=== PATIENT | female | born 1995 | race Caucasian/White ===

== ENCOUNTER → 2020-01-03 11:27 | Outpatient (CLI) | payer OTHER, MEDICAID, SELFPAY ==
[2020-01-03 12:53] LABS: Add Manual Diff / Slide Review NO; Basophils Absolute Auto 0 /uL (0-100); Basophils Percent Auto 0.3 % (0-2); Eosinophils Absolute Auto 0 /uL (0-450); Eosinophils Percent Auto 0.5 % (2-4); Hematocrit 37.7 % (36-46); Hemoglobin 13.2 g/dL (12.0-16.0); Lymphocytes Absolute Auto 1600 /uL (1100-4500); Lymphocytes Percent Auto 20.7 % (25-40); Mean Corpuscular Hemoglobin 32.3 PG (26-34); Mean Corpuscular Volume 92.2 fL (80-100); Monocytes Absolute Auto 400 /uL (0-900); Monocytes Percent Auto 5.2 % (3-14); Neutrophils Absolute Auto 5600 /uL (1500-7000); Neutrophils Percent Auto 73.3 % (50-75); Platelet Count 180 X10^3/uL (150-400); Red Blood Cell Count 4.09 X10^6/uL (4.0-5.2); Red Cell Distribution Width 12.3 % (11.6-14.8); White Blood Cell Count 7.7 X10^3/uL (4.5-11.0)
[2020-01-03 13:10] LABS: Urine N gonorrhoeae NOT DETECTED
[2020-01-03 13:27] LABS: Urine Chlamydia NOT DETECTED
[2020-01-03 14:36] LABS: Hepatitis B Surface Antigen NEGATIVE s/c (NEGATIVE); Rubella Antibody IgG 34.6 IU/mL (>15)
[2020-01-03 14:55] LABS: HIV 1 & 2 Ab/Ag 4th Gen Combo NEGATIVE (NEGATIVE); Hep C Virus Ab w/Reflex Quant NEGATIVE s/c (NEGATIVE)
[2020-01-03 15:26] LABS: Appearance Urine UA SL CLOUDY; Bilirubin Urine UA NEGATIVE (NEGATIVE); Color Urine UA YELLOW; Glucose Urine UA NEGATIVE (Negative); Ketones Urine UA NEGATIVE (NEGATIVE); Leukocyte Esterase Urine UA NEGATIVE (NEGATIVE); Nitrite Urine UA NEGATIVE (Negative); Occult Blood Urine UA NEGATIVE (Negative); Protein Urine UA NEGATIVE (Negative); Urobilinogen Urine UA 0.2 E.U./dL (0.2)
[2020-01-04 02:32] LABS: RPR Screen Non Reactive (Non Reactive)
[2020-01-04 12:36] LABS: Varicella IgG Antibody <135 index (Immune >165)
== END ==
PROVIDERS: Referring Provider Specialist; Visit Provider Specialist
DX: Z34.01 Encounter for supervision of normal first pregnancy, first trimester (principal)
CPT/HCPCS: 36415; 80055; 81003; 86787; 86803; 86850; 86900; 86901; 87389; 87491; 87591

== ENCOUNTER → 2020-02-14 10:40 | Outpatient (CLI) | payer OTHER, MEDICAID, SELFPAY ==
[2020-02-17 01:44] LABS: Calc Gestational Age Ultrasound (.); Estriol, Free 1.36 ng/mL (.); Inhibin A, Dimeric 73.59 pg/mL (.); Inhibin A, MoM 0.43 (.); Maternal Ethnicity Caucasian (.); Maternal Weight 144 lbs (.); Number of Fetuses No (.); OSBR Risk 1 IN 3501 (.); Results Report (.); Test Results *Screen Negative* (.); hCG, MoM 1.08 (.); hCG, Serum 33796 mIU/mL (.)
== END ==
PROVIDERS: Referring Provider Specialist; Visit Provider Specialist
DX: Z34.02 Encounter for supervision of normal first pregnancy, second trimester (principal); Z3A.17 17 weeks gestation of pregnancy
CPT/HCPCS: 36415; 82105; 82677; 84702; 86336

== ENCOUNTER → 2020-03-29 10:10 | Outpatient (CLI) | payer OTHER, MEDICAID, SELFPAY ==
--- NOTE | 2020-03-29 10:11 | DI.US.S_ITS ---
PROCEDURE: US OB FOLLOW UP INDICATIONS: F/U CARDIAC STRUCTURES NOT WELL SEEN ON ANATOMY US OUTSIDE/PRIOR DATING DATA: Last menstrual period (LMP): 10/13/19. LMP-based estimated date of delivery (AUBREY): 07/19/20. First dating scan (date and location): 01/03/20. Estimated date of delivery (AUBREY) from first dating scan: 07/15/20. TECHNIQUE: Real-time scanning was performed of the fetus, with image documentation and biometric measurements. Endovaginal scanning: Not performed COMPARISON: [facility], , US OB >= 14 WEEKS FETUS, 02/14/2020, 10:25. [facility], , US OB <= 14 WEEKS FETUS, 01/03/2020, 10:42. FINDINGS: General: A single living intrauterine gestation is present. Placenta: Placental position is anterior, without previa. Amniotic fluid index: 11.9 cm, normal range is 5-24 cm. heart rate: 152 beats per minute. Maternal cervical canal: 3.8 cm long. Normal lower limit is 2.5 cm. Other: Normal appearance of 4 chambered heart. However the ventricular outflow tracts are not well seen due to gestational lie. Normal appearance of the chest and diaphragm. IMPRESSION: Single living intrauterine fetus Normal appearance of 4 chambered heart however ventricular outflow tracts are not well sonographically visualized due to lie. Dictated by: Boston Benedict M.D. on 03/29/2020 at 12:37 Approved by: Boston Benedict M.D. on 03/29/2020 at 12:43
== END ==
PROVIDERS: Referring Provider Specialist; Visit Provider Specialist
DX: Z36.2 Encounter for other antenatal screening follow-up (principal); Z3A.23 23 weeks gestation of pregnancy
CPT/HCPCS: 76816

== ENCOUNTER → 2020-06-14 09:13 | Outpatient (CLI) | payer OTHER, MEDICAID, SELFPAY ==
[2020-06-15 12:34] LABS: Strep Grp B PCR NEG for Grp B Strep
== END ==
PROVIDERS: PCP Specialist; Visit Provider Obstetrics & Gynecology
DX: Z34.03 Encounter for supervision of normal first pregnancy, third trimester (principal); Z3A.35 35 weeks gestation of pregnancy
CPT/HCPCS: 87653

== ENCOUNTER 2020-07-19 11:40 | Outpatient (CLI) | payer OTHER, MEDICAID, SELFPAY ==
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
== END 2020-07-19 12:40 | disposition home or self-care (01) ==
LOC: OB 15:12
PROVIDERS: PCP Specialist; Referring Provider Obstetrics & Gynecology; Visit Provider Obstetrics & Gynecology
DX: O48.0 Post-term pregnancy (principal); Z3A.40 40 weeks gestation of pregnancy
CPT/HCPCS: 59025; G0378; G0379

== ENCOUNTER 2020-07-19 16:52 | Outpatient (CLI) | payer OTHER, MEDICAID, SELFPAY ==
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
== END 2020-07-19 17:19 | disposition home or self-care (01) ==
LOC: LABOR 17:02 → OB 07-20 14:50
PROVIDERS: PCP Specialist; Referring Provider Obstetrics & Gynecology; Visit Provider Obstetrics & Gynecology
DX: O48.0 Post-term pregnancy (principal); Z3A.40 40 weeks gestation of pregnancy
CPT/HCPCS: 59025; G0378; G0379

== ENCOUNTER 2020-07-20 10:20 | Observation (INO) | payer OTHER, MEDICAID, SELFPAY | END 2020-07-20 12:35 | disposition home or self-care (01) | PROVIDERS: Admitting Provider Obstetrics & Gynecology; PCP Specialist; Referring Provider Obstetrics & Gynecology; Visit Provider Obstetrics & Gynecology | DX: O48.0 Post-term pregnancy (principal); Z3A.40 40 weeks gestation of pregnancy | CPT/HCPCS: 59025; 59050; G0378; G0379 ==

== ENCOUNTER 2020-07-21 07:12 | Inpatient (IN) | payer OTHER, MEDICAID, SELFPAY ==
[2020-07-21 08:35] LABS: Add Manual Diff / Slide Review NO; Basophils Absolute Auto 0 /uL (0-100); Basophils Percent Auto 0.4 % (0-2); Eosinophils Absolute Auto 0 /uL (0-450); Eosinophils Percent Auto 0.4 % (2-4); Hematocrit 39.6 % (36-46); Hemoglobin 13.6 g/dL (12.0-16.0); Lymphocytes Absolute Auto 2200 /uL (1100-4500); Lymphocytes Percent Auto 22.5 % (25-40); Mean Corpuscular HGB Conc 34.3 % (30-36); Mean Corpuscular Hemoglobin 31.6 PG (26-34); Mean Corpuscular Volume 91.9 fL (80-100); Monocytes Absolute Auto 700 /uL (0-900); Monocytes Percent Auto 7.5 % (3-14); Neutrophils Absolute Auto 6900 /uL (1500-7000); Neutrophils Percent Auto 69.2 % (50-75); Platelet Count 163 X10^3/uL (150-400); Red Blood Cell Count 4.31 X10^6/uL (4.0-5.2); Red Cell Distribution Width 12.9 % (11.6-14.8); White Blood Cell Count 9.9 X10^3/uL (4.5-11.0)
[2020-07-21 08:43] LABS: COVID19 -Nasal RAPID Negative (Negative)
[2020-07-21] MEDS: LACTATED RINGERS 1,000 ML 100 ML IV ×2 (08:43→15:46)
[2020-07-21] MEDS: OXYTOCIN PREMIX 30 UNIT/500 ML PLAST..BAG IV (08:44)
[2020-07-21 11:00] VITALS: BP 110/67
--- NOTE | 2020-07-21 13:28 | PM.OBPNLAB ---
Date/Time Date Patient Seen: 07/21/20 Time Patient Seen: 13:28 Pain Control Pain control: tolerating well Pelvic Exam Dilation (cm): 3 Effacement (%): 85 station: 0 Amniotic membrane status: Ruptured (clear fluid, AROM) Contractions Contraction frequency (min): 2 Contraction pattern: Regular Status status: Category l Heart Rate Baseline: 135 Monitor Accelerations: Present (+scalp stim) Monitor Decelerations: Absent Monitor Variability: Moderate Assessment and Plan Assessment: induction ongoing Plan: continuous present management
[2020-07-21] MEDS: FENT 2MCG/ML BUPIV 0.125% EPI 200 MCG/100 ML PLAST..BAG 13 MCG EPIDURAL (20:24)
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
--- NOTE | 2020-07-21 22:12 | P.PCNOB_ITS ---
Events: Labor Induction Labor & Delivery Delivery date: 07/21/20 Intrapartal events: None Cervical ripening method: none Induction method: per pitocin protocol Delivery augmentation: rupture of membranes Delivery monitor: external FHT and external uterine Route of delivery: Episiotomy description: None L&D Laceration Description: Superficial (Bilateral labial and at introitus) Delivery repair: chromic Estimated blood loss (mL): 150 Anesthesia type: Epidural Complications: None Narrative: Patient complete and pushed for 11 minutes. At 9:31 p.m., a live female infant delivered spontaneously in the JORDY presentation over an intact perineum. A loose nuchal cord x1 was reduced on the perineum. The remainder of the body delivered and was placed on mom's abdomen. The cord was double clamped and cut after it stopped pulsing. Cord bloods were obtained. Pitocin was given in the IV fluids. The placenta delivered intact with a three-vessel cord at 9:36 a.m.. The placenta was very small and calcified. Bilateral superficial labial lacerations were repaired with 4-0 chromic in the usual fashion. A superficial laceration at the introitus was repaired with 3-0 chromic with the [id number] suture. Hemostasis was achieved. Estimated blood loss 150 cc. Apgars 9 at 1 minute and 9 at 5 minutes. Epidural analgesia. . Mom and stable to recovery. [place] Baby 1: Infant gender: Female Presentation: vertex Placenta delivery description: Spontaneous cord vessel description: 3 Vessels score (1 min): 9 score (5 min): 9 Plan for aftercare: To [facility]
[2020-07-22] MEDS: DERMOPLAST SPRAY 20% 60 ML 1 SPRAY TOP (00:53)
[2020-07-22] MEDS: LANOLIN OINT 7 GM 1 APPLIC TOP (00:53)
[2020-07-22 07:43] LABS: Hematocrit 34.7 % (36-46); Hemoglobin 11.8 g/dL (12.0-16.0)
[2020-07-22] MEDS: DOCUSATE 100 MG CAPSULE PO (07:59)
[2020-07-22] MEDS: PRENATAL VIT,CALC/IRON/FOLIC 1 TABLET 1 TAB PO (07:59)
[2020-07-22] MEDS: IBUPROFEN 600 MG TABLET PO (07:59)
[2020-07-22 12:24] VITALS: BP 110/67; PULSE 76; RESP 18; TEMP 36.9
--- NOTE | 2020-07-25 19:11 | PM.OBDS.1 ---
Discharge Providers Provider Date of admission: 07/21/20 07:12 Discharge Date: 07/22/20 Primary care physician: Ai Curiel MD Discharge provider: Dalia Suggs MD Summary Hospital Course Date Patient Seen: 07/22/20 Time Patient Seen: 10:30 Procedures: Pitocin induction of labor Artificial rupture of membranes Epidural analgesia Spontaneous vaginal delivery Bilateral superficial labial laceration repair Hospital Course: Patient is a 25-year-old 1 para 1 who presented on July 21, 2020 for a scheduled Pitocin induction of labor. She was started on Pitocin. Artificial rupture of membranes was performed. She received an epidural for pain management. She progressed to complete dilation and had a spontaneous vaginal delivery without complication. She had bilateral superficial labial lacerations which were repaired. Her course was unremarkable and she was discharged home on post day # 1. Peripartum Data Delivery Method: Natural Vaginal Laceration Description: Superficial (Bilateral labial) Episiotomy description: None Procedures: Pitocin induction of labor Artificial rupture of membranes Epidural analgesia Spontaneous vaginal delivery Superficial labial laceration repair complications: none 1: Gender: Female Disposition of : home Status at Discharge Cognitive/behavioral status at discharge: oriented Functional status at discharge: independent ambulation Overall status at discharge: patient is progressing back to baseline Time Spent with Patient Time attestation: Total time spent providing and/or coordinating discharge services: Time spent: Less than 30 minutes Objective Labs Result Diagrams: 07/22/20 07:30 Exam Vital Signs (past 8 hours): Generally: Patient is sitting up in bed, holding infant, no acute distress Fundus: Firm at U -2 Extremities: Negative Homans Discharge Plan Discharge Plan Patient Disposition: Home Provider Discharge Comment: Call with fever, chills, or bleeding vaginally more than a pad in an hour Discharge orders & Medications Prescriptions: Continued prenat.vits,milagros,uft-ibhl-glnop Tablet 1 tab PO DAILY RF: 0 Discontinued nystatin 100,000 unit/gram cream 1 applictn TOP BID Qty: 15 RF: 1 Follow up/Referrals: Ai Curiel MD [Primary Care Provider] - 1 Month (Call [phone] to make an appointment to see Dr Hamm in 4-5 weeks) Diet/Activity/Treatments Diet: Regular Activity: Nothing in the vagina for 6 weeks Skin/Wound/Dressing Care Report to your healthcare provider any signs of infection, such as:: chills, fever, increased pain and unusual drainage Visit Report/Discharge Packet Instructions: DI for Labor and Delivery, Vaginal Stand Alone Forms: Discharge: Care Discharge Data Primary Care Provider: Ai Curiel Discharges patient from system. Discharge Date/Time: 07/22/20 18:30
== END 2020-07-22 18:30 | disposition home or self-care (01) | DRG 560 ==
PROVIDERS: Admitting Provider Obstetrics & Gynecology; PCP Specialist; Referring Provider Specialist; Visit Provider Obstetrics & Gynecology
DX: O48.0 Post-term pregnancy (principal); Z3A.40 40 weeks gestation of pregnancy; Z37.0 Single live birth; O70.0 First degree perineal laceration during delivery; O43.213 Placenta accreta, third trimester; O69.81X0 Labor and delivery complicated by cord around neck, without compression, not applicable or unspecified; Z11.59 Encounter for screening for other viral diseases
CPT/HCPCS: 01967; 36415; 59025; 59050; 59409; 85014; 85018; 85025; 86850; 86900; 86901; 87635; G0378; G0379; J2590

== ENCOUNTER → 2022-01-21 13:15 | Outpatient (CLI) | payer OTHER, MEDICAID, SELFPAY ==
[2022-01-21 14:13] LABS: Add Manual Diff / Slide Review NO; Basophils Absolute Auto 0 /uL (0-100); Basophils Percent Auto 0.2 % (0-2); Eosinophils Absolute Auto 0 /uL (0-450); Eosinophils Percent Auto 0.3 % (2-4); Hematocrit 38.2 % (36-46); Hemoglobin 13.2 g/dL (12.0-16.0); Lymphocytes Absolute Auto 1700 /uL (1100-4500); Lymphocytes Percent Auto 19.9 % (25-40); Mean Corpuscular HGB Conc 34.6 % (30-36); Mean Corpuscular Hemoglobin 31.1 PG (26-34); Mean Corpuscular Volume 89.8 fL (80-100); Monocytes Absolute Auto 500 /uL (0-900); Monocytes Percent Auto 5.6 % (3-14); Neutrophils Absolute Auto 6500 /uL (1500-7000); Platelet Count 198 X10^3/uL (150-400); Red Blood Cell Count 4.25 X10^6/uL (4.0-5.2); Red Cell Distribution Width 12.6 % (11.6-14.8); White Blood Cell Count 8.7 X10^3/uL (4.5-11.0)
[2022-01-21 14:20] LABS: Appearance Urine UA SL CLOUDY; Bilirubin Urine UA NEGATIVE (NEGATIVE); Color Urine UA YELLOW; Glucose Urine UA NEGATIVE (Negative); Ketones Urine UA NEGATIVE (NEGATIVE); Leukocyte Esterase Urine UA NEGATIVE (NEGATIVE); Nitrite Urine UA NEGATIVE (Negative); Occult Blood Urine UA NEGATIVE (Negative); Protein Urine UA NEGATIVE (Negative)
[2022-01-21 16:22] LABS: Hepatitis B Surface Antigen NEGATIVE s/c (NEGATIVE)
[2022-01-21 16:40] LABS: HIV 1 & 2 Ab/Ag 4th Gen Combo NEGATIVE (NEGATIVE); Hep C Virus Ab w/Reflex Quant NEGATIVE s/c (NEGATIVE)
[2022-01-21 20:38] LABS: Urine N gonorrhoeae NOT DETECTED
[2022-01-21 20:55] LABS: Urine Chlamydia NOT DETECTED
[2022-01-22 05:18] LABS: RPR Screen Non Reactive (Non Reactive)
[2022-01-22 08:13] LABS: Varicella IgG Antibody <135 index (Immune >165)
== END ==
PROVIDERS: Obstetrics & Gynecology; PCP Physician Assistant Medical; Referring Provider Specialist; Visit Provider Specialist
DX: Z34.80 Encounter for supervision of other normal pregnancy, unspecified trimester (principal); Z3A.01 Less than 8 weeks gestation of pregnancy
CPT/HCPCS: 36415; 80055; 81003; 86787; 86803; 86850; 86900; 86901; 87086; 87389; 87491; 87591

== ENCOUNTER → 2022-03-26 10:16 | Outpatient (CLI) | payer OTHER, MEDICAID, SELFPAY ==
[2022-03-28 20:35] LABS: AFP, Serum 48.4 ng/mL (.); Estriol, Free 1.34 ng/mL (.); Inhibin A, Dimeric 192.83 pg/mL (.); Inhibin A, MoM 1.37 (.); Maternal Ethnicity Caucasian (.); Maternal Weight 168 lbs (.); Number of Fetuses No (.); OSBR Risk 1 IN 5576 (.); Results Report (.); Test Results *Screen Negative* (.); hCG, MoM 1.18 (.); hCG, Serum 35564 mIU/mL (.)
== END ==
PROVIDERS: PCP Physician Assistant Medical; Referring Provider Obstetrics & Gynecology; Visit Provider Obstetrics & Gynecology
DX: Z34.82 Encounter for supervision of other normal pregnancy, second trimester (principal); Z3A.17 17 weeks gestation of pregnancy
CPT/HCPCS: 36415; 82105; 82677; 84702; 86336

== ENCOUNTER → 2022-04-26 09:32 | Outpatient (CLI) | payer OTHER, MEDICAID, SELFPAY ==
--- NOTE | 2022-04-26 09:34 | DI.US.S_ITS ---
PROCEDURE: US OB >= 14 WEEKS FETUS INDICATIONS: anatomy scan OUTSIDE/PRIOR DATING DATA: Last menstrual period (LMP): 11/27/2021. LMP-based estimated date of delivery (AUBREY): 09/03/2022. First dating scan (date and location): 01/21/2022. Estimated date of delivery (AUBREY) from first dating scan: 09/01/2022. The calculations are made using the ultrasound ABUREY of 09/01/2022. TECHNIQUE: Real-time scanning was performed of the fetus, with image documentation and biometric measurements. COMPARISON: [facility], , US OB >= 14 WEEKS FETUS, 03/26/2022, 10:07. FINDINGS: General: A single living intrauterine gestation is present. Presentation: Cephalic. Placenta: Placental position is anterior , without previa. Amniotic fluid index: 14.41 cm, normal range is 5-24 cm. Single deepest vertical pocket is 4.13 cm. heart rate: 155 beats per minute. Maternal cervical canal: 3.55 cm long. Normal lower limit is 2.5 cm. biometrics: Biparietal diameter: 5.73 cm. 21 weeks 4 days. Head circumference: 20.58 cm. 22 weeks 5 days. Abdominal circumference: 17.03 cm. 22 weeks 0 days. Femur length: 4.29 cm. 24 weeks 0 days. Estimated gestational age by initial ultrasound: 21 weeks 5 days Composite gestational age from present scan: 23 weeks 1 day Estimated weight and percentile: 546 g, 94th percentile Anatomic survey: Neuro: Ventricles are non-dilated at less than 10 mm. Cisterna magna is normal at 3-11 mm. Cerebellum is normal in size and morphology. Nuchal skin fold: Normal at less than 6 mm between 14-21 weeks gestational age. Face: Nose and lips, facial profile are normal. Spine: No evidence for spina bifida. Heart: 4-chambered heart is present, with normal ventricular outflow tracts. Diaphragm: Diaphragm is intact. Stomach: Left-sided stomach is present. Kidneys: No hydronephrosis. Normal is less than 5 mm in 2nd trimester, less than 7 mm in 3rd trimester. Cord: 3-vessel cord has orthotopic insertion. Bladder: Normal in size. Extremities: All 4 extremities identified. IMPRESSION: 1. Single live intrauterine with an estimated gestational age of 21 weeks 5 days by initial ultrasound. 2. Estimated weight 546 g, 94th percentile. 3. Normal SKY. 4. All anatomy was visualized and is normal. We strive to produce accurate, complete, and clear reports of imaging services. To assist us in improving patient care, this report was composed using standard report templates and voice recognition software. Therefore, it may contain abnormal punctuation, insertions and/or omissions. Occasional wrong-word or sound-alike substitutions may occur. Though we review the report and make efforts to correct it, we do recommend that the report be read carefully in proper context to recognize any text inaccuracies. Dictated by: Remy Condon M.D. on 04/26/2022 at 14:46 Approved by: Reym Condon M.D. on 04/26/2022 at 14:51
== END ==
PROVIDERS: PCP Physician Assistant Medical; Referring Provider Obstetrics & Gynecology; Visit Provider Obstetrics & Gynecology
DX: Z34.82 Encounter for supervision of other normal pregnancy, second trimester (principal); Z3A.23 23 weeks gestation of pregnancy
CPT/HCPCS: 76811

== ENCOUNTER → 2022-05-28 10:51 | Outpatient (CLI) | payer OTHER, MEDICAID, SELFPAY ==
[2022-05-28 14:01] LABS: Hematocrit 36.9 % (36-46); Hemoglobin 12.6 g/dL (12.0-16.0)
[2022-05-28 14:46] LABS: GTT (PREG) 1 Hour PP 50gm Dose 50 mg/dL (76-139)
== END ==
PROVIDERS: PCP Physician Assistant Medical; Referring Provider Obstetrics & Gynecology; Visit Provider Obstetrics & Gynecology
DX: Z34.82 Encounter for supervision of other normal pregnancy, second trimester (principal); Z3A.26 26 weeks gestation of pregnancy
CPT/HCPCS: 36415; 82950; 85014; 85018

== ENCOUNTER → 2022-08-09 11:08 | Outpatient (CLI) | payer OTHER, MEDICAID, SELFPAY ==
[2022-08-10 13:20] LABS: Strep Grp B PCR NEG for Grp B Strep
== END ==
PROVIDERS: PCP Physician Assistant Medical; Visit Provider Obstetrics & Gynecology
DX: Z34.83 Encounter for supervision of other normal pregnancy, third trimester (principal); Z3A.36 36 weeks gestation of pregnancy
CPT/HCPCS: 87653

== ENCOUNTER 2022-08-21 10:21 | Outpatient (CLI) | payer OTHER, MEDICAID, SELFPAY | END 2022-08-21 11:34 | disposition home or self-care (01) | LOC: LABOR 11:13 → OB 08-25 11:21 | PROVIDERS: PCP Physician Assistant Medical; Referring Provider Obstetrics & Gynecology; Visit Provider Obstetrics & Gynecology | DX: O47.1 False labor at or after 37 completed weeks of gestation (principal); Z3A.38 38 weeks gestation of pregnancy | CPT/HCPCS: 59025; G0378; G0379 ==

== ENCOUNTER 2022-08-22 09:01 | Outpatient (CLI) | payer OTHER, MEDICAID, SELFPAY | END 2022-08-22 10:10 | disposition home or self-care (01) | LOC: OB 08-25 11:21 | PROVIDERS: PCP Physician Assistant Medical; Referring Provider Obstetrics & Gynecology; Visit Provider Obstetrics & Gynecology | DX: O47.1 False labor at or after 37 completed weeks of gestation (principal); Z3A.38 38 weeks gestation of pregnancy | CPT/HCPCS: 59025; G0378; G0379 ==

== ENCOUNTER 2022-08-30 14:06 | Outpatient (CLI) | payer OTHER, MEDICAID, SELFPAY | END 2022-08-30 15:08 | disposition home or self-care (01) | LOC: OB 09-02 07:28 | PROVIDERS: PCP Physician Assistant Medical; Referring Provider Obstetrics & Gynecology; Visit Provider Obstetrics & Gynecology | DX: O36.8130 Decreased fetal movements, third trimester, not applicable or unspecified (principal); Z3A.39 39 weeks gestation of pregnancy | CPT/HCPCS: 59025; G0378; G0379 ==

== ENCOUNTER 2022-08-31 10:31 | Inpatient (IN) | payer OTHER, MEDICAID, SELFPAY ==
[2022-08-31 11:34] LABS: Add Manual Diff / Slide Review NO; Basophils Absolute Auto 0 /uL (0-100); Basophils Percent Auto 0.2 % (0-2); Eosinophils Absolute Auto 0 /uL (0-450); Eosinophils Percent Auto 0.3 % (2-4); Hematocrit 35.5 % (36-46); Hemoglobin 11.5 g/dL (12.0-16.0); Lymphocytes Absolute Auto 1700 /uL (1100-4500); Lymphocytes Percent Auto 16.9 % (25-40); Mean Corpuscular HGB Conc 32.4 % (30-36); Mean Corpuscular Hemoglobin 27.1 PG (26-34); Mean Corpuscular Volume 83.7 fL (80-100); Monocytes Absolute Auto 800 /uL (0-900); Monocytes Percent Auto 7.8 % (3-14); Neutrophils Absolute Auto 7500 /uL (1500-7000); Neutrophils Percent Auto 74.8 % (50-75); Platelet Count 179 X10^3/uL (150-400); Red Blood Cell Count 4.24 X10^6/uL (4.0-5.2)
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
[2022-08-31] MEDS: OXYTOCIN PREMIX 30 UNIT/500 ML PLAST..BAG IV (11:40)
[2022-08-31] MEDS: LACTATED RINGERS 1,000 ML 100 ML IV ×3 (11:41→23:23)
[2022-08-31 12:04] VITALS: BP 110/66
[2022-08-31 13:24] LABS: COVID19 -Nasal RAPID Negative (Negative)
--- NOTE | 2022-08-31 14:43 | PM.OBPNLAB ---
Date/Time Date Patient Seen: 08/31/22 Time Patient Seen: 02:30 Pain Control Pain control: tolerating well Comments: Noticing contractions but not uncomfortable Pelvic Exam Dilation (cm): 4 Effacement (%): 80 station: -2 Amniotic membrane status: Intact Comments: vertex mildly high, not well enough applied for AROM yet. 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 No labor yet Will re-check in 2-3 hours to see if can AROM
[2022-08-31] MEDS: FENT 2MCG/ML BUPIV 0.125% EPI 200 MCG/100 ML PLAST..BAG 6 MCG EPIDURAL (16:40)
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
--- NOTE | 2022-08-31 20:43 | P.PNOB_ITS ---
Date/Time Date Patient Seen: 08/31/22 Time Patient Seen: 17:55 Pain Control Pain control: epidural Comments: Received epidural prior to any discomfort with contractions. Comfortable with epidural now. Pelvic Exam Dilation (cm): 4 Effacement (%): 80 station: -2 Amniotic membrane status: Intact Comments: Cervix mid to anterior position now, moving anterior. Vertex initially fairly applied to cervix, but when attempted AROM, after 1st attempt with amnio hook ,vertex moved away and then membranes not bulging either. Vertex became totally not applied. Additional attempt at AROM deferred. Contractions Pitocin rate (mU/min): 20 Contraction frequency (min): 3 Contraction pattern: Regular Contraction intensity: Moderate Status status: Category l Monitor Accelerations: Present Monitor Decelerations: Absent Monitor Variability: Moderate Assessment and Plan Assessment: induction ongoing Plan: continuous present management (increase Pitocin 2 units to 22 mu with subtle change at 20 mu and then no further increase) Comments: Will re-check cervix in 2+ hours, see if can AROM then
--- NOTE | 2022-08-31 20:52 | PM.OBPNLAB ---
Date/Time Date Patient Seen: 08/31/22 Time Patient Seen: 20:30 Pain Control Pain control: epidural Pelvic Exam Dilation (cm): 4 Effacement (%): 80 station: -2 Amniotic membrane status: Ruptured (AROM clear, large amount of fluid) Contractions Contractions on admission: none Monitor mode: External Pitocin rate (mU/min): 22 Contraction frequency (min): 3 Contraction pattern: Regular Contraction intensity: Moderate Status status: Category l Heart Rate Baseline: 120 Monitor Accelerations: Present Monitor Decelerations: Absent Monitor Variability: Moderate Assessment and Plan Assessment: induction ongoing Plan: continuous present management Comments: Cervix now anterior. Vertex better applied. AROM to augment GBS screen was negative
[2022-08-31] MEDS: FENT 2MCG/ML BUPIV 0.125% EPI 200 MCG/100 ML PLAST..BAG 8 MCG EPIDURAL (23:24)
--- NOTE | 2022-08-31 23:43 | PM.OBPNLAB ---
Date/Time Date Patient Seen: 08/31/22 Time Patient Seen: 23:44 Pain Control Pain control: epidural Pelvic Exam Dilation (cm): 8 Effacement (%): 90 station: 0 Amniotic membrane status: Ruptured (AROM clear, large amount of fluid) Contractions Contractions on admission: none Monitor mode: External Pitocin rate (mU/min): 22 Contraction frequency (min): 2 Contraction pattern: Regular Contraction intensity: Moderate Status status: Category l Heart Rate Baseline: 125 Monitor Accelerations: Present Monitor Decelerations: Early, Episodic and Variable (mild occasional) Monitor Variability: Moderate Assessment and Plan Assessment: active labor and induction ongoing Plan: continuous present management Comments: Will re-check cervix in 1 hour
[2022-09-01] MEDS: LIDOCAINE 2% INJ SDV 5 ML (02:05)
--- NOTE | 2022-09-01 03:22 | PM.OBPRVD ---
Labor & Delivery Delivery date: 09/01/22 Cervical ripening method: none Induction method: per pitocin protocol Delivery augmentation: rupture of membranes Delivery monitor: external FHT and external uterine Route of delivery: L&D Laceration Description: Perineal - 2nd Degree Delivery repair: chromic Estimated blood loss (mL): 700 Anesthesia Type: Epidural and Local Complications: spontaneous left vulvar hematoma extending intravaginally Narrative: She progressed to completely dilated. She pushed approximately 13 minutes and had a spontaneous vaginal delivery over an intact perineum from the OA position. Anterior followed by posterior shoulder were delivered without difficulty with the patient pushing, followed by the remainder of the body. There was a body cord noted x1 on delivery which was reduced. A baby boy was delivered at 0146. The baby was placed on the maternal abdomen and with drying and stimulation, cried and become vigorous. After a few minutes the cord was clamped and cut. Placenta took awhile to deliver, delivered spontaneously, with a patient push, almost 1 hour later. While awaiting the placenta she only had occasional light bleeding. With delivery of the placenta she delivered some clots and a small gush of blood with bleeding quickly decreased to normal with uterine massage and IV Pitocin. On exam some clots were palpable at the cervix, lower uterine segment and were removed. The uterus continued to be firm and vaginal bleeding remained normal. On inspection she had a small second-degree perineal laceration to the right of midline which was repaired in the usual fashion with 3-0 chromic. Approximately 2/3 into the repair, the patient felt some increased discomfort on her left side and a spontaneous inferior vulvar hematoma was noted quickly expanding in size. On palpation it extended vaginally, left posterior vaginal sidewall. Some pressure was placed digitally to the area initially and to the vulva with bimanual pressure. Then attention was placed back to quickly finish her sutures. With now retracting for visualization for the sutures, she felt significant discomfort and hematoma was making introitus tight for visualizing area to sutures. She had discomfort with pressure to separate the labia. She reported feeling lightheaded. BP dropped to 82/48, pulse 97. She was placed supine, sutures were quickly finished. IV fluids started. After some IV fluids she began feeling better and BP increased back to 100/60s. Suspect some drop in her BP due to acute blood loss with added blood loss of the hematoma but with acute pain suspected some of BP drop was vagal reaction with discomfort. On repeat exam, hematoma was staying stable. It had been approximate orange size, aprox 6 cm size. Vaginal bleeding, lochia was normal, light. She was left to recover in stable condition with close observation. Ice pack was applied externally to hematoma. Repeat exam 30 minutes later, hematoma stable, feels somewhat decreased in size both vulvar to inferior buttocks area and in distal/mid posterior vagina, decreased size s/p ice pack on. Rectal exam normal. Rpeat CBC, H/H 9.0/27.2 from admit H/H 11.5/35.5. PT/ PTT normal and baseline fibrinogen normal 328 . Will keep on close vital signs and re-check exam 1 hour. Repeat H/H in 6 hours. [place] Baby 1: gender: Male Presentation: vertex Position: Left Occiput Anterior Placenta delivery description: Spontaneous Cord Vessel Description: 3 Vessels and Nuchal Cord score (1 min): 7 score (5 min): 9 weight: 9 lb 1.646 oz Plan for aftercare: Routine care and Other (Continue more frequent vistal signs, repeat vulvo-vaginal exam)
[2022-09-01] MEDS: ACETAMINOPHEN 325 MG TABLET 650 MG PO ×4 (04:18→22:33)
[2022-09-01] MEDS: OXYCODONE IR 5 MG TABLET PO ×3 (04:18→20:47)
[2022-09-01] MEDS: DERMOPLAST SPRAY 20% 60 ML 1 SPRAY TOP (04:19)
[2022-09-01 04:47] LABS: Hematocrit 27.2 % (36-46); Mean Corpuscular HGB Conc 33.1 % (30-36); Mean Corpuscular Hemoglobin 27.2 PG (26-34); Mean Corpuscular Volume 82.2 fL (80-100); Platelet Count 154 X10^3/uL (150-400); Red Blood Cell Count 3.31 X10^6/uL (4.0-5.2); White Blood Cell Count 17.5 X10^3/uL (4.5-11.0)
[2022-09-01 04:54] LABS: Fibrinogen 378 mg/dL (211-428); Prothrombin Time 11.5 SECONDS (10.1-12.7)
[2022-09-01 04:56] LABS: PTT Partial Thromboplastin Tim 23 SECONDS (26-36)
[2022-09-01] MEDS: DOCUSATE 100 MG CAPSULE PO ×2 (09:53→20:47)
[2022-09-01 12:40] LABS: Hematocrit 26.1 % (36-46); Hemoglobin 8.7 g/dL (12.0-16.0); Mean Corpuscular HGB Conc 33.4 % (30-36); Mean Corpuscular Hemoglobin 27.6 PG (26-34); Mean Corpuscular Volume 82.5 fL (80-100); Platelet Count 157 X10^3/uL (150-400); Red Blood Cell Count 3.16 X10^6/uL (4.0-5.2); Red Cell Distribution Width 13.8 % (11.6-14.8)
--- NOTE | 2022-09-01 13:17 | P.PNOB_ITS ---
Subjective - OB Subjective Patient comments: no complaints and pain well controlled [place] baby status: doing well and nursing well feeding status: exclusively breast feeding Narrative: Yao catheter placed yesterday about 2 hours after delivery, when on standing at side of bed, to try to use bathroom, she felt lightheaded. Back in bed lying down she felt better. Yao catheter placed, since due to have bladder empty at this point if could not void, to leave in for about 6 hours or until she felt felt better after acute blood loss Hemoglobin had returned at 9.0, rodp from 11.5 on admission. She reports feeling much better after some sleep. Has stood and ambulated in the room without a problem. She request her Yao out which has recently been removed. Await 1st void. Lochia is light. Date Patient Seen: 09/01/22 Time Patient Seen: 11:15 Exam Vital Signs (past 8 hours): Temp 96.6F BP 106/51, Pulse 82 RR 14 Narrative Exam Narrative: General: Well-appearing female Skin and mucous membranes without pallor Abdomen: Soft, nontender, nondistended. Fundus U-1, firm, nontender Extremities: Trace pedal edema Vulva: decreased size of left vulvar hematoma, softer. Vagina: palpable hematoma from distal to mid posterior vagina, stable to mildy decreased in size, softer, not tense Objective Labs Result Diagrams: 09/01/22 12:00 Labs: Laboratory Results - last 24 hr 08/31/22 08/31/22 09/01/22 11:00 11:00 04:22 WBC RBC Hgb Hct MCV MCH MCHC RDW Plt Count PT 11.5 INR 1.0 APTT 23 L Fibrinogen 378 SARS-CoV-2 (PCR) Negative Blood Type A Positive Antibody Screen Negative Crossmatch See Detail 09/01/22 09/01/22 04:22 12:00 WBC 17.5 H D 12.0 H RBC 3.31 L 3.16 L Hgb 9.0 L 8.7 L Hct 27.2 L 26.1 L MCV 82.2 82.5 MCH 27.2 27.6 MCHC 33.1 33.4 RDW 14.0 13.8 Plt Count 154 157 PT INR APTT Fibrinogen SARS-CoV-2 (PCR) Blood Type Antibody Screen Crossmatch Assessment & Plan Plan day: 0 plan OB: routine care and other (6 hour repeat CBC due now. Suspect stable. ) Comments: Continue intermittent ice to vulva,perineum. Re-discussed vulvar hematoma. Yao pulled, await first void. Routine increase ambulation. Time Spent With Patient Time: Total time spent is greater than 50% in coordination of care (as documented) at patient's floor/unit and/or counseling patient: Time with patient: 15-24 minutes
[2022-09-01] MEDS: IBUPROFEN 600 MG TABLET PO ×2 (16:35→22:33)
[2022-09-02] MEDS: IBUPROFEN 600 MG TABLET PO (07:28)
[2022-09-02] MEDS: ACETAMINOPHEN 325 MG TABLET 650 MG PO (07:28)
[2022-09-02] MEDS: DOCUSATE 100 MG CAPSULE PO (08:00)
--- NOTE | 2022-09-02 09:14 | P.DS_ITS ---
Discharge Providers Provider Date of admission: 08/31/22 10:31 Discharge Date: 09/02/22 Primary care physician: Hayley Cruz PA-C Consults: 09/02/22 03:17 Consult to Humanities Division Chair Routine Comment: Discharge provider: Emi Baldwin MD Summary Hospital Course Date Patient Seen: 09/02/22 Time Patient Seen: 09:14 Diagnoses: 39w4d gestation Rh positive GBS negative Spontaneous left vulvar hematoma extending intravaginally Acute blood loss anemia Hospital Course: The pt presented for elective IOL. She was induced with pitocin. She received an epidural for pain control. She had AROM with clear fluid present. She progressed to complete and had a spontaneous vaginal delivery of a viable baby boy. The pt had a 2nd degree perineal laceration that was repaired. Immediately she was noted to have an expanding spontaneous left vulvar hematoma that extended intravaginally. She had a drop in her BP, that responded to IVF bolus and then stabilized. Ultimately a crawford catheter was placed to help with urination due to the hematoma. This was removed several hours after it was placed, and at the time of discharge the pt was voiding without difficulty. , there were no additional complications. At the time of discharge she was ambulating and passing flatus without difficulty. Her lochia was decreasing appropriately. Hematoma was shrinking in size significantly. She was with good latch. Her pain was well controlled. She will continue her iron supplement at home to help with anemia. She will f/u in 6 weeks for check. Her plans on vasectomy for contraception. Peripartum Data Delivery Method: Natural Vaginal Laceration Description: Perineal - 2nd Degree Episiotomy description: None Procedures: Spontaneous vaginal delivery complications: other (spontaneous left vulvar hematoma extending intravaginally) 1: Gender: Male Disposition of : home Status at Discharge Cognitive/behavioral status at discharge: oriented Functional status at discharge: independent ambulation Overall status at discharge: patient is progressing back to baseline Time Spent with Patient Time attestation: Total time spent providing and/or coordinating discharge services: Objective Labs Result Diagrams: 09/01/22 12:00 Labs: Laboratory Results - last 24 hr 09/01/22 12:00 WBC 12.0 H RBC 3.16 L Hgb 8.7 L Hct 26.1 L MCV 82.5 MCH 27.6 MCHC 33.4 RDW 13.8 Plt Count 157 Exam Narrative Exam Narrative: Gen: NAD, sitting comfortably in bed, appears well CV: RRR, no murmurs Resp: clear to auscultation bilaterally Abd: soft, appropriately tender, fundus firm and below the umbilicus, nondisten ded : left vulva with approximately golfball sized hematoma, appropriately tender Ext: no edema Discharge Plan Discharge Plan Patient Disposition: Home Discharge orders & Medications Prescriptions: New acetaminophen 325 mg Tablet 650 mg PO Q6HR PRN (Reason: Pain, Mild (1-3)) Qty: 30 0RF docusate sodium 100 mg Capsule 100 mg PO BID Qty: 60 0RF ibuprofen 600 mg Tablet 600 mg PO Q6HR PRN (Reason: Fever/Mild Pain (1-3)) Qty: 30 0RF Continued prenat.vits,milagros,[id number] Tablet 1 tab PO DAILY ferrous sulfate [Feosol] 325 mg (65 mg iron) tablet 325 mg PO DAILY folic acid 400 mcg tablet 0.4 mg PO DAILY Discontinued ondansetron 4 mg tablet,disintegrating 4 mg PO Q6H PRN (Reason: nausea and vomiting) Qty: 20 2RF valacyclovir [Valtrex] 500 mg tablet 500 mg PO BID Qty: 10 0RF ondansetron 4 mg tablet,disintegrating 4 mg PO Q6H PRN (Reason: nausea and vomiting) Qty: 20 3RF Follow up/Referrals: Hayley Cruz PA-C [Primary Care Provider] - Elisha Meneses MD [Physician] - 6 Weeks Diet/Activity/Treatments Diet: Diet as Tolerated and Regular Skin/Wound/Dressing Care Report to your healthcare provider any signs of infection, such as:: chills, fever, increased pain and unusual drainage Visit Report/Discharge Packet Instructions: DI for Labor and Delivery, Vaginal Visit Report Forms: Patient Portal/API, Stroke Signs & Symptoms Discharge Data Primary Care Provider: Hayley Cruz
[2022-09-02 11:45] VITALS: BP 110/66; PULSE 73; RESP 14; TEMP 36.6
== END 2022-09-02 11:15 | disposition home or self-care (01) | DRG 806 ==
PROVIDERS: Obstetrics & Gynecology; Admitting Provider Obstetrics & Gynecology; PCP Physician Assistant Medical; Referring Provider Obstetrics & Gynecology; Visit Provider Obstetrics & Gynecology
DX: O70.1 Second degree perineal laceration during delivery (principal); D62 Acute posthemorrhagic anemia; Z37.0 Single live birth; O90.81 Anemia of the puerperium; Z3A.39 39 weeks gestation of pregnancy; O99.893 Other specified diseases and conditions complicating puerperium; Z67.10 Type A blood, Rh positive; Z20.822 Contact with and (suspected) exposure to COVID-19
CPT/HCPCS: 36415; 59050; 59400; 59409; 85025; 85027; 85384; 85610; 85730; 86850; 86900; 86901; 87635; C9803; G0379; J2590